=== PATIENT | male | born 1980 | race Caucasian/White ===

== ENCOUNTER 2024-07-22 21:50 | Emergency (ER) | payer OTHER, SELFPAY ==
--- NOTE | ~2024-07-22 | XR_ITS ---
Portable chest x-ray Comparison: None Clinical History: Epigastric pain Findings: Lungs are clear, without focal consolidation or pleural effusion. Cardiomediastinal silho uette is unremarkable. Bones and soft tissues are unremarkable. Impression: Normal chest. Reviewed, dictated and finalized at location . Impression: Normal chest.
--- OUTSIDE RECORDS SUMMARY | 2024-07-22 21:53 | XMS_ITS | Referral Summary ---
Author Organization [facility] Address [address] [place] [address] Care Team Providers Care Coverstitch Machine Operator Name Role Phone Carl Stahl MD Primary Care Provider Allergies No known active allergies Medications ciprofloxacin-d exAMETHasone (CIPRODEX) otic suspension INSTILL 4 DROPS INTO LEFT EAR TWICE DAILY FOR 7 DAYS 01/07/2024 Active Active Problems No known active problems Social History Tobacco Use Types Packs/Day Years Used Date Smoking Tobacco: Never Smokeless Tobacco: Never Tobacco Cessation:Counseling Given: Not Answered Sex and Gender Information Value Date Recorded Sex Assigned at Not on file Legal Sex Male 10:55 AM CDT Gender Identity Not on file Sexual Orientation Not on file Plan of Treatment Not on file Insurance [employer] OOS Care Teams Coverstitch Machine Operator Relationship Specialty Start Date End Date Carl Stahl MD [address] [facility] [address] [place] [address] PCP - General Family Medicine 01/07/24
--- OUTSIDE RECORDS SUMMARY | 2024-07-22 21:53 | XMS_ITS | Data Portability ---
Author Organization [facility], Main Office Address [address] [place] [address] Assessment No assessment recorded. Plan of Treatment Reminders Order Date Submit Date Provider Last Modified By Organization Details Last Modified Time Details Appointments None recorded. Lab None recorded. Referral None recorded. Procedures None recorded. Surgeries None recorded. Imaging None recorded. Medication Orders ciprofloxac in 0.3 %-dexametha sone 0.1 % ear drops,suspe nsion 2023 024 [facility] [id number], [address], [place], [place], [id number], 11:48:48 Patient TargetsNo targets recorded. Patient Instructions Encounter Date Encounter Id Patient Instructions Last Modified By Organization Details Last Modified Time 01/07/2024 [id number] DISCUSSED THAT GIVEN A COMPLETE PERFORATED LEFT EARDRUM ADVISED TO SEE DR. FORTE FOR FURTHER RECOMMENDATIONS. PATIENT PROVIDED CONTACT INFORMATION HE STATES HE DOES NOT NEED AN OFFICIAL REFERRAL AND WE WILL CONTACT THE OFFICE TO SCHEDULE AN APPOINTMENT. TAKE CIPRODEX TWICE DAILY FOR 7 DAYS FOR MANAGEMENT. [email or web address] Not available 01/07/2024 11:50:02 Reason for Referral None Reported. Problems Name Problem SNOMED Code Status Onset Date Resolution Date Notes Provider Name and Address Organization Details Recorded Time Perforation of left tympanic membrane 3475208639957 103 Active 2023 ADELE Ricketts [address] [facility], [facility] [address], [place], [address] [facility] 11:48:24 Problem Notes None recorded. Medical Equipment None Reported. Allergies No known drug allergies Medications Name Sig Start Date Stop Date Status Note LastModified by Organization Details LastModified Time prednisone 20 mg tablet TAKE 2 TABLETS BY MOUTH DAILY WITH FOOD FOR 5 DAYS active Not Available Not Available No t Available ondansetron 8 mg disintegrat ing tablet DISSOLVE 1 TABLET ON THE TONGUE THREE TIMES DAILY FOR NAUSEA 01/06 completed Not Available Not Available Not Available amoxicillin 875 mg tablet TAKE 1 TABLET BY MOUTH EVERY 12 HOURS FOR 10 DAYS active Not Available Not Available No t Available oseltamivir 75 mg capsule TAKE 1 CAPSULE BY MOUTH TWICE DAILY FOR 5 DAYS 01/06 completed Not Available Not Available Not Available hydroxyzine HCl 25 mg tablet TAKE 1 TABLET BY MOUTH 3 TO 4 TIMES PER DAY NEEDED FOR ANXIETY 01/06 completed Not Available Not Available Not Available ciprofloxac in 0.3 %-dexametha sone 0.1 % ear drops,suspe nsion INSTILL 4 DROPS INTO LEFT EAR TWICE DAILY FOR 7 DAYS active Not Available Not Available No t Available Vitals Date Recorded Body weight Body mass index (BMI) Body height Body temperature Provider Name and Address Organization Details Last Updated DateTime 01/07/2024 21718.07 g 23.6 kg/m2 182.88 cm 98.5 [degF] Jennyfer Garduno RN [place] [facility] 01/07/2024 11:22:44 Social History Question Answer Notes LastModified by Organizat ion Details LastModified Time What Is Your Level Of Alcohol Consumption? Occasional [email or web address] Information not available 01/07/2024 Do You Or Have You Ever Used E-cigarettes Or Vape? Current User Of Electronic Cigarettes Information not available 01/07/2024 Do You Or Have You Ever Used Any Other Forms Of Tobacco Or Nicotine? Yes [email or web address] Information not available 01/07/2024 Sex: Unknown Functional Status None recorded. Mental Status None recorded. Family History Relationship Description Onset Age of this Age Resolved Age Notes LastModified by Organization Details LastModified Time Father No current problems or disability [email or web address] Not available 01/06 11:25:25 Mother No current problems or disability [email or web address] Not available 01/06 11:25:26 Medical History No medical history recorded. Past Encounters Encounter ID Performer Location Encounter Start Date Encounter Closed Date Diagnosis/Indication Diagnosis SNOMED-CT Code Diagnosis ICD10 Code Diagnosis Note [id number] Orlando Choe MD [facility] Daniel Squires [address] [place] [address] 01/07/2024 11:12:32 01/07/2024 11:51:55 Perforation of left tympanic membrane [id number] 230082 H72.92 Health Concerns Section Related Observation LastModified by Organization Manny ls LastModified Time None Recorded Concern Status LastModified by Organization Details LastModified Time None Recorded Advance Directives Directive None Recorded Payers Encounter Date Sequence Insurance Name Policy Number Policy Jain Covered Member ID Jain Member ID Guarantor Name 01/07/2024 1 [facility] ([place] [id number] Abilio Eid [id number] Abilio Eid Notes Date Note Type Note Provider Name and Address Organization Details Recorded Time 01/07/2024 text/html this patient presents to the office with no significant past medical history. He reports that on 12/27/2023 he was vacationing in [place] in which he had gone scuba diving. He states that he did not equalize his pressure completely on the way down and developed significant pain to his left ear and noticed blood in his mask. He states that he has been taking amoxicillin for management. He does report mild hearing loss. Joselin Craig, REHABILITATION ASSISTANT [address] [facility], [facility] [address], [place], [address], [facility] 01/07/2024 11:50:05
--- OUTSIDE RECORDS SUMMARY | 2024-07-22 21:53 | XMS_ITS | Continuity of Care Document ---
Author Organization [facility] Address [address] [place] [address] Phone Support Name Relationship Address Phone Silvia Eid spouse [address] [place] [address] [phone] Sorin Barclay MD Caregiver Unknown Unavailable Care Team Providers Care Software Technician Name Role Phone Sorin Barclay MD Unavailable Unavailable Allergies, Adverse Reactions, Alerts Substance Reaction Status Criticality No Known Allergies Active No Inform ation Medications Medication Instructions Dosage Effective Dates (start - stop) Status Comments Chantix 1 mg Tab 1 pill BID - Active Xanax 1 mg Tab Take one capsule by mouth every twelve hours prn severe anxiety - Active Ambien 10 mg Tab take 0.5 - 1 tablet (5MG) by ORAL route every day at bedtime as needed 5 MG - Active Chantix 1 mg Tab 1 pill BID - No Longer Active Procedures Procedure Date Offic/outpt E&m Estab Low-mod 0 Office Exam - Limited Office Exam - Limited Office Exam - Limited Offic/outpt E&m Estab Low-mod 8 Preven Med Estab Pt; 18-39 Offic/outpt E&m Estab Low-mod 8 Offic/outpt E&m Estab Low-mod 8 Offic/outpt E&m Estab Low-mod 7 Office Exam - Limited Advance Directives Directive Yes / No Effective Date File Name No Information Encounters Encounter Description Practice Location Reason(s) For Visit Diagnoses Date Provider Providers Copied on Encounter [facility][Note 3] [address], [id number] , [place] tel: [phone] [facility] No Information 1 Deny Rowell. [facility], [address] [place] [address], [id number] , . tel: [phone] Referring Provider: Sorin Barclay MD, [facility] [address] [place] [address], [address] . 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 [address], [place], [place], [id number] , . tel: [phone] Referring Provider: Sorin Barclay MD, [facility] [address], [place], [address] . tel:[phone] Office Exam - Limited [facility], [address], [id number] , tel: [phone] [facility] meds follow up (chief complaint) HEADACHESCREENING FOR LIPID DISORDER Nov- 0 Deny Rowell. 2 [facility], [address], [id number] , [place]. tel: [phone] Referring Provider: Sroin Barclay MD, [facility] [address], [place], [address] . tel:[phone] Office Exam - Limited [facility], [address], [id number] , [place] tel: [phone] [facility] Stress (chief complaint) INSOMNIA, OTHER Fe 3201 0 Deny Rowell. [facility], [address], [id number] , [place]. tel: [phone] Referring Provider: Sorin Barclay MD, 2 [facility] [address] [place] [address], [address] . tel:[phone] Office Exam - Limited [facility], [address], [id number] , tel: [phone] [facility] anxiety/str ess (chief complaint) INSOMNIA, OTHERANXIETY 8-201 0 Deny Rowell. 2 [facility], [facility] [address], [place], [id number] , . tel: [phone] Referring Provider: Sorin Barclay MD, [address], [address] . tel:[phone] [facility], [address], [id number] , tel: [phone] [facility] traveling to [facility] for abx (chief complaint)e lbow pain due to computer useage (chief complaint) SPRAIN/STRAIN ELBOW,FOREARM UNSP 9-200 9 Deny Rowell. [address], [id number] , [place]. tel:[phone] Referring Provider: Sorin Barclay MD, [address], [address] . tel:[phone] Offic/outpt E&m Estab Low-mod [facility], [address], [id number] , tel: [phone] [facility] sorethroat x 1 day (chief complaint) TONSILLITIS, ACUTE Sep- 0-200 8 Deny Rowell. 2 [facility], [address], [id number] , [place]. tel:[phone] Referring Provider: Sorin Barclay MD, [address], [address] . tel:[phone] Preven Med Estab Pt; 18-39 [facility], [address], [id number] , [place] tel: [phone] [facility] physical (chief complaint)d epression (chief complaint) FATIGUE & MALAISE, OTHERSCREENING FOR LIPID DISORDERPHYSICAL/GEN MEDICAL EXAM 8 Deny Rowell. 2 [facility], [facility] [address], [place], [id number] , [place]. tel: [phone] Referring Provider: Sorin Barclay MD, 2 [facility] [address] [place] [address], [address] . tel:[phone] Offic/outpt E&m Estab Low-mod [facility], [address], [id number] , [place] tel: [phone] [facility] f/u on anxiety ( meds ) (chief complaint) SCREENING FOR LIPID DISORDERFATIGUE & MALAISE, OTHERFATIGUE & MALAISE, OTHERANXIETY STATE, UNSPECIFIED 8 Deny oRwell. 2 [facility], [address], [id number] , [place]. tel: [phone] Referring Provider: Sorin Barclay MD, [address], [address] . tel:[phone] [facility] [address], [id number] , [place] tel: [phone] [facility] mid lower back pain (chief complaint)d iscuss anxiety/str ess (chief complaint) SPRAIN/STRAIN THORACICANXIETY STATE, UNSPECIFIED 8 Deny Rowell. 2 [facility], [address], [id number] , [place]. tel: [phone] Referring Provider: Sorin Barclay MD, 2 [facility] [address] [place] [address], [address] . tel:[phone] Offic/outpt E&m Estab Lowmod [facility], [address], [id number] , [place] tel: [phone] [facility] bodyaches/f ever/cough x 3days (chief complaint)d iarrhea (chief complaint) INFLUENZA W/ OTH MANIFESTATIONSCOUGH 7 Deny Rowell. 2 [facility], [address], [id number] , [place]. tel:[phone] Referring Provider: Sorin Barclay MD, [address], [address] . 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 [address], [id number] , [place]. tel:[phone] Referring Provider: Sorin Barclay MD, [address], [address] . tel:[phone] Family History Family Member Type Diagnosis Age At Onset Father Problem (finding) old age 71 Mother Problem (finding) Narcolepsy Mother Problem (finding) Systemic lupus erythema tosus Mother Problem (finding) HTN Payers Payer name Insurance type Covered republican ID Authoriza tion(s) [facility] PPO [id number] Social History Type Description Quantity Date Captured Comments Sex Male Smoking Status No Information Chief Complaint And Reason For Visit No Information Reason For Referral Reason For Referral No Information History Of Present Illness Encounter Date Complaint History Of Prese nt Illness rash groin noticed couple r ed bumps in groin area 5 days ago. popped a few and blood came out but no pus or clear fluid. then applied hydrogen peroxide and then strong acne meds--that made skin more red. some abx cream too. +shaves pubic hair on regualr basis for bike riding and recently changed razors and soaps a few weeks ago. States that he and his had split up for a few months and recently got back together. Pt denies having any other sexual pertners during the separation, says she hasnt either. denies vesicles, pustules, pain, itching, penile d/c, urinary sx, abd pain, F/C, h/o STD or w/ h/o STD. 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- having bilateral elbow pains now- no numbness/tingling/weaknessno pain into hands sorethroat x 1 day as above- fev er to 102.6- + high here- started last nightno sinus pressure, no coughno h/o mono per ptno sick contacts noted depression mild sadness/str ess physical Here for CPE f/u on anxiety ( meds ) Here for f/u anxiety- doing better- has used some of his xanax lately- but he has only been using a fewsleeping better overallno CP/SOB- improved fatigue levels mid lower back pain as above- sp asm, pain- not improving with OTC medsno numbness/tingling discuss anxiety/stress + more an xiety stress- has used xanax in past with good results- used only as needed diarrhea bodyaches/fever/cough x 3days as above- fever to 102 yesterday- only 101/100 today- body aches, mild diarrhea, [place] 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
--- OUTSIDE RECORDS SUMMARY | 2024-07-22 21:53 | XMS_ITS | Clinical Summary ---
Author Organization [facility] Address [address] [place] [address] Care Team Providers Care Consulting Senior Practice Director Name Role Phone Carl Stahl MD Primary Care Provider Allergies No known active allergies Medications ciprofloxacin-d exAMETHasone (CIPRODEX) otic suspension INSTILL 4 DROPS INTO LEFT EAR TWICE DAILY FOR 7 DAYS 01/07/2024 Active Active Problems No known active problems Medical History Medical History Date Comments HL (hearing loss) 12/27/2023 Social History Tobacco Use Types Packs/Day Years Used Date Smoking Tobacco: Never Smokeless Tobacco: Never Tobacco Cessation:Counseling Given: Not Answered Sex and Gender Information Value Date Recorded Sex Assigned at Not on file Legal Sex Male 10:55 AM CDT Gender Identity Not on file Sexual Orientation Not on file Obstetrics History Plan of Treatment Health Maintenance Due Date Last Done Comments Depression Screening 1981 Hepatitis C Screening 1981 DTaP/Tdap/Td Vaccine (1 - Tdap) 1992 Varicella Vaccines (1 of 2 - 13+ 2-dose series) 1994 Hepatitis B Screening 08/23/1999 Regular Well Visit/Exam 18-64 08/23/1999 Influenza Vaccine (#1) 2023 HPV Vaccines Aged Out No longer eligi ble based on patient's age to complete this topic Pneumococcal vaccine <65 Aged Out No longer eligible based on patient's age to complete this topic Insurance [employer] OOS Care Teams Consulting Senior Practice Director Relationship Specialty Start Date End Date Carl Stahl MD [address] [place] [address] PCP - General Family Medicine 01/07/24
[2024-07-22 22:11] VITALS: BP 144/95; PULSE 156; RESP 15; TEMP 36.1; O2SAT 100
--- NOTE | 2024-07-22 22:29 | ECG_ITS ---
Test Date: 2024-07-22 22:30:30 Measurements Intervals [place] Rate: 124 P: 46 DE: 168 QRS: 37 QRSD: 65 T: 61 QT: 329 QTc: 473 Interpretive Statements SINUS TACHYCARDIA ABNORMAL RHYTHM ECG No previous ECG available for comparison Electronically Signed On 07-23-2024 07:23:10 CDT by Neil Hollis M.D.
[2024-07-22 22:33] VITALS: BP 138/110; PULSE 125; RESP 19; O2SAT 100
[2024-07-22 22:38] LABS: Basophils Percent Auto 0.5 % (0.2-1.2); Eosinophils Absolute Auto 0.3 K/mm3 (0-0.3); Hematocrit 52.1 % (42.0-52.0); Hemoglobin 16.9 g/dL (14.0-18.0); Immature Granulocyte Absolute 0.03 K/mm3 (0.00-0.031); Immature Granulocyte Percent A 0.4 % (0-0.5); Lymphocytes Absolute Auto 0.34 K/mm3 (0.9-3.2); Lymphocytes Percent Auto 4.2 % (18.3-44.2); Mean Corpuscular HGB Conc 32.4 g/dl (32-36); Mean Corpuscular Volume 104.8 fl (80-100); Mean Platelet Volume 10.7 fl (7.4-10.4); Monocytes Absolute Auto 0.9 K/mm3 (0.1-0.6); Monocytes Percent Auto 10.9 % (2.6-8.5); Neutrophils Absolute Auto 6.5 K/mm3 (1.3-6.7); Platelet Count Result 307 k/mm3 (150-375); Red Blood Count 4.97 M/mm3 (4.6-6.20); Red Cell Distribution Width 13.2 % (11.5-14.5); White Blood Count 8.2 K/mm3 (4.5-10.0)
[2024-07-22 22:41] VITALS: BP 152/102; PULSE 125; RESP 16; O2SAT 100
[2024-07-22 22:46] VITALS: BP 153/108; PULSE 127; RESP 18; O2SAT 100
--- NOTE | 2024-07-22 22:46 | PC.NURSE ---
Pt instructed to provide a urine sample. Pt states I'm dry . Pt educated on importance of providing urine. pt agreed to attempt shortly.
[2024-07-22 22:47] LABS: Alanine Aminotransferase 111 U/L (6-50); Albumin Level 5.6 g/dL (3.5-5.1); Alkaline Phosphatase 85 U/L (38-126); Aspartate Amino Transferase 61 U/L (17-59); Bilirubin,Total 1.6 mg/dL (0.2-1.3); Blood Urea Nitrogen 10 mg/dL (9-20); Carbon Dioxide < 5 mmol/L (22-30); Chloride 97 mmol/L (98-107); Estimated CRCL calculation 75 ml/min; Estimated Glomerular Filt Rate > 60; Glucose 256 mg/dL (65-110); Potassium 5.3 mmol/L (3.4-5.0); Sodium 136 mmol/L (137-145)
[2024-07-22 22:49] LABS: Prothrombin Time 13.8 Seconds (11.1-14.7)
[2024-07-22 22:50] LABS: Partial Thromboplastin Time 22.2 Seconds (22.3-36.8)
[2024-07-22 23:01] VITALS: BP 169/102; PULSE 115; RESP 17; O2SAT 100
[2024-07-22] MEDS: SODIUM CHLORIDE 0.9% IV 100 ML 200 ML (23:08)
[2024-07-22] MEDS: PHENobarbitaL sodium (*CRX) 130 MG/ML VIAL 260 MG IV PUSH (23:08)
[2024-07-22] MEDS: ONDANSETRON INJ 4 MG/2 ML VIAL IV PUSH (23:09)
[2024-07-22] MEDS: LACTATED RINGERS 1,000 ML 999 ML IV CONT (23:09)
[2024-07-22 23:16] VITALS: BP 163/88; PULSE 97; RESP 16; O2SAT 99
[2024-07-22 23:25] LABS: Ethanol < 10 mg/dL (<10)
--- OUTSIDE RECORDS SUMMARY | 2024-07-22 23:41 | XMS_ITS | Clinical Summary ---
Author Organization [facility] Address [address] [place] [address] Care Team Providers Care Catering Service Manager Name Role Phone Carl Stahl MD Primary [...] Regular Well Visit/Exam 18-64 08/23/1999 Influenza Vaccine (Season Ended) 2024 HPV Vaccines Aged Out No longer eligi ble based on patient's age to complete this topic Pneumococcal vaccine <65 Aged Out No longer eligible based on patient's age to complete this topic Insurance [employer] OOS Care Teams Catering Service Manager Relationship Specialty Start Date End Date Carl Stahl MD [address] [place] [address] PCP - General Family Medicine 01/07/24
--- OUTSIDE RECORDS SUMMARY | 2024-07-22 23:41 | XMS_ITS | Continuity of Care Document ---
Author Organization [facility] Address [address] [place] [address] Phone Support Name Relationship Address Phone Silvia Eid spouse [address] [place] [address] [phone] Sorin Barclay MD Caregiver Unknown Unavailable Care Team Providers Care Correspondence Renew Clerk Name Role Phone Sorin Barclay MD Unavailable [...] Diagnoses Date Provider Providers Copied on Encounter [facility] [address], [id number] , [place] tel: [phone] [facility] No Information 1 [facility] Rowell. [facility] [address] [place] [address], [id number] , . tel: [phone] Referring Provider: Sorin Barclay MD, [facility] [address] [place] [address], [address] . 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 [address], [place], [place], [id number] , . tel: [phone] Referring Provider: Sorin Barclay MD, [facility] [address], [place], [address] . tel:[phone] Office Exam - Limited [facility], [address], [id number] , tel: [phone] [facility] meds follow up (chief complaint) HEADACHESCREENING FOR LIPID DISORDER Nov- 0 Deny Rowell. 2 [facility], [address], [id number] , [place]. tel: [phone] Referring Provider: Sorin Barclay MD, [facility] [address], [place], [address] . tel:[phone] Office Exam - Limited [facility], [address], [id number] , [place] tel: [phone] [facility] Stress (chief complaint) INSOMNIA, OTHER Fe 3201 0 Deny Rowell. [facility], [address], [id number] , [place]. tel: [phone] Referring Provider: Sorin Barclay MD, 2 [facility] [address] [place] [address], [address] . tel:[phone] Office Exam - Limited [facility], [address], [id number] , tel: [phone] [facility] anxiety/str ess (chief complaint) INSOMNIA, OTHERANXIETY 8-201 0 Deny Rowell. 2 [facility] [address], [id number] , . tel: [phone] Referring Provider: Sorin Barclay MD, [address], [address] . tel:[phone] [facility], [address], [id number] , tel: [phone] [facility] traveling to [facility] for abx (chief complaint)e lbow pain due to computer useage (chief complaint) SPRAIN/STRAIN ELBOW,FOREARM UNSP 9-200 9 Deny Rowell. [address], [id number] , [place]. tel:[phone] Referring Provider: Sorin Barclay MD, [address], [address] . tel:[phone] Offic/outpt E&m Estab Low-mod [facility], [address], [id number] , tel: [phone] [facility] sorethroat x 1 day (chief complaint) TONSILLITIS, ACUTE Sep- 0-200 8 Deny Rowell. 2 [facility], [address], [id number] , [place]. tel:[phone] Referring Provider: Sorin Barclay MD, [address], [address] . tel:[phone] Preven Med Estab Pt; 18-39 [facility], [address], [id number] , [place] tel: [phone] [facility] physical (chief complaint)d epression (chief complaint) FATIGUE & MALAISE, OTHERSCREENING FOR LIPID DISORDERPHYSICAL/GEN MEDICAL EXAM 8 Deny Rowell. 2 [facility] [address], [id number] , [place]. tel: [phone] Referring Provider: Sorin Barclay MD, 2 [facility] [address] [place] [address], [address] . tel:[phone] Offic/outpt E&m Estab Low-mod [facility], [address], [id number] , [place] tel: [phone] [facility] f/u on anxiety ( meds ) (chief complaint) SCREENING FOR LIPID DISORDERFATIGUE & MALAISE, OTHERFATIGUE & MALAISE, OTHERANXIETY STATE, UNSPECIFIED 8 Deny Rowell. 2 [facility], [address], [id number] , [place]. tel: [phone] Referring Provider: Sorin Barclay MD, [address], [address] . tel:[phone] Offic/outpt [facility], [address], [id number] , [place] tel: [phone] [facility] mid lower back pain (chief complaint)d iscuss anxiety/str ess (chief complaint) SPRAIN/STRAIN THORACICANXIETY STATE, UNSPECIFIED 8 Deny Rowell. 2 [facility], [address], [id number] , [place]. tel: [phone] Referring Provider: Sorin Barclay MD, 2 [facility] [address] [place] [address], [address] . tel:[phone] Offic/outpt E&m Estab Lowmod [facility], [address], [id number] , [place] tel: [phone] [facility] bodyaches/f ever/cough x 3days (chief complaint)d iarrhea (chief complaint) INFLUENZA W/ OTH MANIFESTATIONSCOUGH 7 Deny Rowell. 2 [facility], [address], [id number] , [place]. tel:[phone] Referring Provider: Sorin Barclay MD, [address], [address] . 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 [address], [id number] , [place]. tel:[phone] Referring Provider: Sorin Barclay MD, [address], [address] . tel:[phone] Family History Family Member Type Diagnosis Age At Onset Father Problem (finding) old age 71 Mother Problem (finding) Narcolepsy Mother Problem (finding) Systemic lupus erythema tosus Mother Problem (finding) HTN Payers Payer name Insurance type Covered republican ID Authoriza tion(s) [facility] [place] PPO [id number] Social History Type Description Quantity Date Captured [...] at night as wellno SI/HI [facility] requesting for abx as above elbow pain [...] minimal [place] in [place] ago Wrapper Opener- discuss quitting smoking HEALTH DIRECTOR- here to discuss quitting smoking- has heard [...]
--- OUTSIDE RECORDS SUMMARY | 2024-07-22 23:41 | XMS_ITS | Referral Summary ---
Author Organization [facility] Address [address] [place] [address] Care Team Providers Care Analytics Manager Name Role Phone Carl Stahl MD [...] Plan of Treatment Not on file Insurance [employer] OOS Care Teams Analytics Manager Relationship Specialty Start Date End Date Carl Stahl MD [address] [facility] [address] [place] [address] PCP - General Family Medicine 01/07/24
[2024-07-23 00:01] VITALS: BP 163/80; PULSE 103; RESP 13; O2SAT 100
[2024-07-23 00:31] VITALS: BP 155/88; PULSE 94; RESP 19; O2SAT 99
[2024-07-23] MEDS: LACTATED RINGERS 1,000 ML 999 ML IV CONT ×2 (00:35)
[2024-07-23] MEDS: diphenhydrAMINE HCl INJ 50 MG/ML VIAL 25 MG IV PUSH (00:37)
[2024-07-23] MEDS: METOCLOPRAMIDE HCL INJ 10 MG/2 ML VIAL IV PUSH (00:41)
[2024-07-23 00:50] LABS: Add Urine Microscopic? YES; Appearance Urine Clear (Clear); Bacteria Urine None Seen /hpf; Bilirubin Urine Negative (Negative); Blood Urine Trace (Negative); Color Urine Yellow (Yellow); Glucose Urine UA 2+ mg/dL (Negative); Hyaline Casts Urine Present /lpf; Ketones Urine 4+ mg/dL (Negative); Leukocyte Esterase Ur Negative LEU/UL (Negative); Need Manual Microscopic Reviewed; Nitrate Urine Negative (Negative); Non Pathogenic Casts >20; Protein Urine 2+ mg/dL (Negative); RBC Urine 0-2 /hpf (0-2); Specific Grav Ur 1.019 (1.001-1.035); Squamous Epithelial Cell Urine None Seen /hpf (Few); Urobilinogen Urine 0.2 mg/dL (<2.0); WBC Urine 0-5 /hpf (0-3); pH Urine 5.5 (5.0-9.0)
[2024-07-23] MEDS: PANTOPRAZOLE SODIUM IV 40 MG VIAL IV PUSH (00:53)
[2024-07-23 01:01] VITALS: BP 168/94; PULSE 91; RESP 21; O2SAT 100
[2024-07-23] MEDS: PHENobarbitaL sodium (*CRX) 130 MG/ML VIAL 260 MG IV PUSH (01:07)
[2024-07-23] MEDS: SODIUM CHLORIDE 0.9% IV 100 ML 200 ML (01:07)
--- NOTE | 2024-07-23 01:57 | ED.NAVMDI ---
HPI - Nausea/Vomiting/Diarrhea General Chief complaint: Alcohol Stated complaint: ETOH withdrawal-constant vomiting, High BP Time Seen by Provider: 07/22/24 22:51 History of Present Illness HPI Narrative: Patient presents here with alcohol withdrawal and vomiting; unable to keep anything down. Had been sober since September but had some drinks while on vacation. Related Data Allergies Allergy/AdvReac Type Severity Reaction Status Date / Time zolpidem Allergy Unknown Other Verified 07/22/24 21:51 Review of Systems Review of Systems: All systems reviewed & are unremarkable except as noted in HPI and below PMFSH Family History Family History Mother Family history of lupus erythematosus Social History Social History Smoking status: Former smoker Smoking end date: 03/19/17 Alcohol intake: current Exam Narrative: EXAMINATION OF ORGAN SYSTEMS/BODY AREAS: Constitutional: Vital signs per nursing GENERAL:[No acute distress, non-toxic appearing.] HEAD: Normal with no signs of head trauma. EYES: EOMI, conjunctiva normal ENT: Hearing grossly intact, +tongue wag LUNGS: Nonlabored breathing. HEART: Tachycardic ABD: [Soft], [nontender to palpation] EXT: Normal range of motion SKIN: [No rashes or lesions.] NEURO: [Alert and oriented x 3. Tremulous] PSYCH: Normal affect Course Vital Signs Vital signs: Vital Signs Temperature 97 F L 07/22/24 22:11 Pulse Rate 156 H 07/22/24 22:11 Respiratory Rate 15 07/22/24 22:11 Blood Pressure 144/95 H 07/22/24 22:11 Pulse Oximetry 100 07/22/24 22:11 Oxygen Delivery Room Air 07/22/24 22:11 Temperature 97 F L 07/22/24 22:11 Pulse Rate 125 H 07/22/24 22:33 Respiratory Rate 19 07/22/24 22:33 Blood Pressure 138/110 H 07/22/24 22:33 Pulse Oximetry 100 07/22/24 22:33 Oxygen Delivery Room Air 07/22/24 22:11 MDM - Nausea/Vomiting/Diarrhea MDM Narrative Medical decision making narrative: Patient presenting with nausea vomiting, unable to keep anything down, tremors, concern for alcohol withdrawal, possible seizure. On exam he is tachycardic, but alert and oriented x3 with no focal neurologic deficits but he does have tremors. He is given several rounds of fluids, phenobarbital, antiemetics, Protonix, and on re-evaluation, states that he feels much better. Repeat heart rate 88, blood pressure 150s over 90, labs initially obtained do seem consistent with possible seizure given his low bicarb versus possibly starvation/alcoholic ketoacidosis given the ketones in his urine. I did time I wanted to admit him to the hospital for further medications and observation since this is the dangerous time with the alcohol withdrawal potential seizure however patient is insistent on going home. He is alert and oriented x3, capable of making his own medical decisions, and I cannot hold him here against his will. I did reiterate multiple times that he can always return to the hospital if he changes his mind about admission or for anything else. Patient agreeable to this. I will give him a prescription for Librium taper to help acute prevent withdrawal as well as nausea medication. He does promise that he will return to the hospital if he feels worse. Lab Data 07/22/24 22:32 07/22/24 22:32 Labs: Lab Results 07/22/24 07/22/24 Range/Units 22:32 23:56 WBC 8.2 (4.5-10.0) K/mm3 RBC 4.97 (4.6-6.20) M/mm3 Hgb 16.9 (14.0-18.0) g/dL Hct 52.1 H (42.0-52.0) % MCV 104.8 H (80-100) fl MCH 34.0 (26-34) pg MCHC 32.4 (32-36) g/dl RDW 13.2 (11.5-14.5) % Plt Count 307 (150-375) k/mm3 MPV 10.7 H (7.4-10.4) fl Immature Gran % (Auto) 0.4 (0-0.5) % Neut % (Auto) 80.0 H (45.5-73.1) % Lymph % (Auto) 4.2 L (18.3-44.2) % [place] % (Auto) 10.9 H (2.6-8.5) % Eos % (Auto) 4.0 (0-4.4) % Baso % (Auto) 0.5 (0.2-1.2) % Lymph # (Auto) 0.34 L (0.9-3.2) K/mm3 [place] # (Auto) 0.9 H (0.1-0.6) K/mm3 Eos # (Auto) 0.3 (0-0.3) K/mm3 Baso # (Auto) 0.0 (0.0-0.1) K/mm3 Abs Immat Gran (auto) 0.03 (0.00-0.031) K/mm3 Absolute Neuts (auto) 6.5 (1.3-6.7) K/mm3 Absolute Nucleated RBC 0.000 (0.0-0.012) K/mm3 Nucleated RBC % 0.0 (0.0-0.2) % PT 13.8 (11.1-14.7) Seconds INR 1.0 APTT 22.2 L (22.3-36.8) Seconds Sodium 136 L (137-145) mmol/L Potassium 5.3 H (3.4-5.0) mmol/L Chloride 97 L (98-107) mmol/L Carbon Dioxide < 5 L (22-30) mmol/L Anion Gap (4-12) mmol/L BUN 10 (9-20) mg/dL Creatinine 1.25 (0.7-1.3) mg/dL Estim Creat Clear Calc 75 ml/min Estimated GFR > 60 (59 - ) Glucose 256 H (65-110) mg/dL Calcium 9.0 (8.4-10.2) mg/dL Total Bilirubin 1.6 H (0.2-1.3) mg/dL AST 61 H (17-59) U/L ALT 111 H (6-50) U/L Alkaline Phosphatase 85 (38-126) U/L Total Protein 9.0 H (6.3-8.2) g/dL Albumin 5.6 H (3.5-5.1) g/dL Urine Color Yellow (Yellow) Urine Appearance Clear (Clear) Urine pH 5.5 (5.0-9.0) Ur Specific [place] 1.019 (1.001-1.035) Urine Protein 2+ H (Negative) mg/dL Urine Glucose (UA) 2+ H (Negative) mg/dL Urine Ketones 4+ H (Negative) mg/dL Ur Blood (Man) Trace (Negative) Urine Nitrate Negative (Negative) Urine Bilirubin Negative (Negative) Urine Urobilinogen 0.2 (<2.0) mg/dL Add Ur Microanalysis Reviewed Leukocyte Esterase Rfl Negative (Negative) GARTH/UL Urine RBC 0-2 (0-2) /hpf Urine WBC 0-5 (0-3) /hpf Ur Squamous Epith Cells None seen (Few) /hpf Urine Bacteria None seen /hpf Urine Casts >20 Hyaline Casts Present (None) /lpf Ethyl Alcohol < 10 (<10) mg/dL Discharge Plan Discharge Clinical Impression: Alcohol withdrawal syndrome, Alcoholic ketoacidosis Patient Disposition: Home Condition: Stable Instructions: Alcohol Withdrawal (ED), Alcohol Dependence (ED) Additional Instructions: Please follow-up with primary care doctor in the next 2 days. You can always return to the hospital if you change your mind about being admitted. Make sure that you are drinking plenty of fluids and eating enough food, if you find you cannot keep anything down or if you're starting to feel withdrawal symptoms despite the medications prescribed, come back to the hospital immediately. Patient Language: Palauan Prescriptions: New chlordiazepoxide HCl 25 mg capsule 25 mg PO Q6-12H PRN (Reason: alcohol withdrawal) Qty: 15 0RF Rx Instructions: Take 2 tabs every 6 to 12 hours on day 1; 1 tab every 6 hours on day 2; 1 tab every 12 hours on day 3; 1 tab at night on day 4. famotidine 20 mg tablet 20 mg PO DAILY Qty: 30 0RF ondansetron 4 mg tablet,disintegrating 4 mg PO Q8H PRN (Reason: nausea and vomiting) Qty: 10 0RF No Action venlafaxine 75 mg capsule,extended release 24hr 75 mg PO DAILY Qty: 30 2RF Follow-up/Referrals: Carl Stahl MD [Primary Care Provider] - 2 Days
[2024-07-23 02:00] VITALS: PULSE 92; RESP 18
[2024-07-23 02:01] VITALS: BP 157/95; PULSE 100; RESP 20
[2024-07-23 02:50] VITALS: BP 134/96; PULSE 101; RESP 18; O2SAT 100
== END 2024-07-23 02:40 | disposition home or self-care (01) ==
PROVIDERS: Emergency Provider Emergency Medicine; PCP Family Medicine
DX: F10.939 Alcohol use, unspecified with withdrawal, unspecified (principal); Y90.0 Blood alcohol level of less than 20 mg/100 ml; E87.29 Other acidosis; Z87.891 Personal history of nicotine dependence
CPT/HCPCS: 36415; 71045; 80053; 81001; 82077; 85025; 85610; 85730; 93005; 96361; 96374; 96375; 96376; 99284; J1200; J2405; J2470; J2560; J2765; J7120